=== PATIENT | male | born 1935 | race Caucasian/White ===

== ENCOUNTER 2017-04-08 04:17 | Inpatient (IN) | payer OTHER ==
[2017-04-08] MEDS ORDERED: fentaNYL 100 MCG/2 ML INJ IVP ONE (04:35)
[2017-04-08] MEDS ORDERED: NS 1,000 ML IV ONE ×2 (04:35→08:19)
[2017-04-08] MEDS ORDERED: ONDANSETRON DISINTEGRATING 4 MG TAB PO ONE (04:35)
--- NOTE | 2017-04-08 04:35 | EDPHY ---
H & P Stated Complaint: Abdominal Pain Time Seen by Provider: 04/08/17 04:23 HPI/ROS: CHIEF COMPLAINT: abdominal discomfort HISTORY OF PRESENT ILLNESS: medically stable 81-year-old male who is feeling well until yesterday morning, approximately 20 years ago. Per their beginning woke up he did not feel well. Diffuse abdominal pain essentially periumbilically which is persisted since that time. The symptoms were so bad that he could sleep nice thus he came in. Yesterday morning when he woke up the pain was diffuse and mild to moderate. It was associated with anorexia and no nausea. The anorexia she has now progressed to the point where he has some nausea only after have been examine him. Nonetheless he has not been would be much throughout the day. As best I can relook call there really was not any pain went to bed although he is getting a little mixed up with the day versus night as he has not had any sleep. The patient's of was diffuse periumbilical. Does not localize right or left her upper lower. There has been no associated back pain. He has had no dysuria frequency. He has had no pyuria or hematuria. There has been no diarrhea. Has had no cough shortness of breath difficulty breathing chest pain He has been able to walk correct. There is no pain with walking per se in terms of striking of the feet. He has had no similar pain before. The last bowel movement was a day and half but he has had per poor p.o. intake since then in the 1st place. No one else is ill. No recent travel. No diarrhea. No change of bowel habit. He has not tried anything to try to make the pain go away in terms of pain medications. He describes as a moderate, now progressing to moderately severe, ache. He has had no prior abdominal imaging. REVIEW OF SYSTEMS: Constitutional: No fever, no chills. Eyes: No discharge ENT: No sore throat. Cardiovascular: No chest pain, no palpitations. Respiratory: No cough, shortness of breath, or wheezing. Gastrointestinal: No nausea vomiting or diarrhea. No abdominal pain. Genitourinary: No hematuria or frequency. Musculoskeletal: No back pain. Skin: No rashes. Neurological: No headache. 10 point ROS otherwise negative Source: Patient Exam Limitations: No limitations - Medical/Surgical History Hx Asthma: No Hx Chronic Respiratory Disease: No Hx Diabetes: No Hx Cardiac Disease: No Hx Renal Disease: No Hx Cirrhosis: No Hx Alcoholism: No Hx HIV/AIDS: No Hx Splenectomy or Spleen Trauma: No Other PMH: HTN - Family History Significant Family History: No pertinent family hx - Social History Smoking Status: Never smoked Alcohol Use: None Drug Use: None - Physical Exam Exam: General Appearance: Alert, no distress. Afebrile. Normal phonation. No respiratory distress. Eyes: Pupils equal and round no pallor or injection. No icterus ENT, Mouth: Mucous membranes moist. Pharynx without erythema or exudate. TM Clear. Neck: No adenopathy. Supple. No JVD. Trachea in midline. Respiratory: There are no retractions, lungs are clear to auscultation. Chest wall: Nontender to palpation. No crepitus. Cardiovascular: Regular rate and rhythm, without murmur. Abdomen: Somewhat protuberant, active bowel sounds, tympanitic. Tender, maximally so in the right lower quadrant to direct palpation as well as percussion, but no masses, bowel sounds normal. Femoral pulses equal. No CVA tenderness. Neurological: Ox3. No motor weakness. Sensation intact. Gait nl. Skin: Warm and dry, no rashes. Musculoskeletal: No joint swelling. Extremities: No edema. Homans sign negative. No cords. Psychiatric: Normal affect. Patient is oriented X 3. Constitutional: Initial Vital Signs Temperature (C) 37.4 C 04/08/17 04:31 Heart Rate 61 04/08/17 04:31 Respiratory Rate 18 04/08/17 04:31 Blood Pressure 177/89 H 04/08/17 04:31 O2 Sat (%) 93 04/08/17 04:31 O2 Delivery Mode Nasal Cannula O2 (L/minute) 2 Allergies/Adverse Reactions: No Known Allergies Allergy (Unverified 04/08/17 04:30) Home Medications: Medication Instructions Recorded Amlodipine Besylate 04/08/17 Medical Decision Making - Diagnostics Imaging Results: CT scan of Abdomen & Pelvis. Performed [without] IV contrast. Interpreted by radiologist. Films reviewed by me. Findings as follows: Distended bowel approximately 11 cm with a sigmoid volvulus. Imaging: Discussed imaging studies w/ call box wirer Radiologist ED Course/Re-evaluation: Upon initial evaluation an IV established and given normal saline for volume depletion. We gave him Zofran IV as the exam seem to stimulate him to the point of nausea and he needed to sit up so as not to vomit. Furthermore he opted for some pain relief thus he was given fentanyl 50 mcg IV. His pain improved. With that infusion of the fentanyl he became vagal and hypotensive. She responded quickly to tilting of the stretcher, and his color returned normal with the saline bolus within the next 10 minutes. The white count was normal. With that a CT scan without contrast was initiated. This ultimately as interpreted by the radiologist showed 11 cm: With a sigmoid volvulus. Thereby general surgery was called. Patient requested [address] which had no beds thus [facility] is contacted and I discussed discussed the case with Dr. Anderson. The patient was accepted for transfer from ER to ER. Staff initiated ambulance transfer. ED Doc at [facility] notified by me as well. Differential Diagnosis: Differential diagnosis includes, but is not limited to: Gastroenteritis, dehydration, diverticulitis, hepatitis, pancreatitis, renal colic, kidney stones, ureterolithiasis, cholecystitis, appendicitis, gastritis, mesenteric adenitis, food poisoning, bacterial dysentery. - Data Points Laboratory Results: Laboratory Results 04/08/17 04:55 04/08/17 04:55 04/08/17 04/08/17 04:55 04:55 WBC 6.35 10^3/uL 10^3/uL (3.80-9.50) RBC 5.16 10^6/uL 10^6/uL (4.40-6.38) Hgb 15.6 g/dL g/dL (13.7-17.5) Hct 45.7 % % (40.0-51.0) MCV 88.6 fL fL (81.5-99.8) MCH 30.2 pg pg (27.9-34.1) MCHC 34.1 g/dL g/dL (32.4-36.7) RDW 13.2 % % (11.5-15.2) Plt Count 167 10^3/uL 10^3/uL (150-400) MPV 9.7 fL fL (8.7-11.7) Neut % (Auto) 68.3 % % (39.3-74.2) Lymph % (Auto) 16.1 % % (15.0-45.0) St[place] % (Auto) 11.5 % % (4.5-13.0) Eos % (Auto) 3.5 % % (0.6-7.6) Baso % (Auto) 0.3 % % (0.3-1.7) Nucleat RBC Rel Count 0.0 % % (0.0-0.2) Absolute Neuts (auto) 4.34 10^3/uL 10^3/uL (1.70-6.50) Absolute Lymphs (auto) 1.02 10^3/uL 10^3/uL (1.00-3.00) Absolute Monos (auto) 0.73 10^3/uL 10^3/uL (0.30-0.80) Absolute Eos (auto) 0.22 10^3/uL 10^3/uL (0.03-0.40) Absolute Basos (auto) 0.02 10^3/uL 10^3/uL (0.02-0.10) Absolute Nucleated RBC 0.00 10^3/uL 10^3/uL (0-0.01) Immature Gran % 0.3 % % (0.0-1.1) Immature Gran # 0.02 10^3/uL 10^3/uL (0.00-0.10) Sodium 142 mEq/L mEq/L (134-144) Potassium 3.6 mEq/L mEq/L (3.3-5.0) Chloride 105 mEq/L mEq/L (97-110) Carbon Dioxide 25 mEq/l mEq/l (22-31) Anion Gap 12 mEq/L mEq/L (8-16) BUN 18 mg/dL mg/dL (7-23) Creatinine 0.9 mg/dL mg/dL (0.7-1.3) Estimated GFR > 60 Glucose 131 mg/dL H mg/dL (70-100) Calcium 9.3 mg/dL mg/dL (8.5-10.4) Total Bilirubin 0.8 mg/dL mg/dL (0.1-1.4) Conjugated Bilirubin 0.4 mg/dL mg/dL (0.0-0.5) Unconjugated Bilirubin 0.4 mg/dL mg/dL (0.0-1.1) AST 25 IU/L IU/L (17-59) ALT 37 IU/L IU/L (21-72) Alkaline Phosphatase 92 IU/L IU/L (38-126) Total Protein 7.8 g/dL g/dL (6.3-8.2) Albumin 4.5 g/dL g/dL (3.5-5.0) Lipase 121 IU/L IU/L (23-300) Medications Given: Discontinued Medications Fentanyl (Sublimaze) 50 mcg IVP EDNOW ONE Stop: 04/08/17 04:36 Last Admin: 04/08/17 05:03 Dose: 50 mcg Sodium Chloride (Ns) 1,000 mls @ 0 mls/hr IV EDNOW ONE; Wide Open PRN Reason: Protocol Stop: 04/08/17 04:36 Last Admin: 04/08/17 05:02 Dose: 1,000 mls Morphine Sulfate (Morphine) 2 mg IVP EDNOW ONE Stop: 04/08/17 06:05 Last Admin: 04/08/17 06:13 Dose: 2 mg Morphine Sulfate (Morphine) 2 mg IVP EDNOW ONE Stop: 04/08/17 06:36 Last Admin: 04/08/17 06:38 Dose: 2 mg Ondansetron HCl (Zofran Odt) 4 mg PO EDNOW ONE Stop: 04/08/17 04:36 Last Admin: 04/08/17 05:06 Dose: Not Given Ondansetron HCl (Zofran) 4 mg IVP EDNOW ONE Stop: 04/08/17 05:05 Last Admin: 04/08/17 05:05 Dose: 4 mg Departure - Departure Disposition: [facility] Acute Clinical Impression: Sigmoid volvulus Abdominal pain Qualifiers: Abdominal location: generalized Qualified Code(s): R10.84 - Generalized abdominal pain Condition: Fair Referrals: Patient,NotPresent [Primary Care Provider] - As per Instructions
[2017-04-08] MEDS ORDERED: ONDANSETRON 4 MG/2 ML VIAL ONE ×2 (04:58→11:04)
[2017-04-08 05:01] LABS: % IMMATURE GRANULYOCYTES 0.3 % (0.0-1.1); ABSOLUTE IMMATURE GRANULOCYTES 0.02 10^3/uL (0.00-0.10); ADD DIFF? NO; ADD MORPH? NO; ADD SCAN? NO; ATYPICAL LYMPHOCYTE FLAG 0 (0-99); FRAGMENT RBC FLAG 0 (0-99); HEMATOCRIT 45.7 % (40.0-51.0); HEMOGLOBIN 15.6 g/dL (13.7-17.5); LEFT SHIFT FLG 0 (0-99); LIPEMIA HEMOLYSIS FLAG 90 (0-99); MEAN CELL HEMOGLOBIN 30.2 pg (27.9-34.1); MEAN CELL HEMOGLOBIN CONCENTR. 34.1 g/dL (32.4-36.7); MEAN CELL VOLUME 88.6 fL (81.5-99.8); MEAN PLATELET VOLUME 9.7 fL (8.7-11.7); PLATELET CLUMPS FLAG 0 (0-99); PLATELET COUNT 167 10^3/uL (150-400); RED BLOOD CELL COUNT 5.16 10^6/uL (4.40-6.38); RED CELL DISTRIBUTION WIDTH 13.2 % (11.5-15.2)
[2017-04-08] MEDS ORDERED: ONDANSETRON 4 MG/2 ML VIAL IVP ONE ×2 (05:04→07:28)
[2017-04-08 05:15] LABS: ALANINE AMINOTRANSFERASE 37 IU/L (21-72); ALBUMIN 4.5 g/dL (3.5-5.0); ALKALINE PHOSPHATASE 92 IU/L (38-126); ANION GAP 12 mEq/L (8-16); ASPARTATE AMINOTRANSFERASE 25 IU/L (17-59); BILIRUBIN,TOTAL 0.8 mg/dL (0.1-1.4); BILIRUBIN-CONJUGATED 0.4 mg/dL (0.0-0.5); BILIRUBIN-UNCONJUGATED 0.4 mg/dL (0.0-1.1); CALCIUM 9.3 mg/dL (8.5-10.4); CARBON DIOXIDE 25 mEq/l (22-31); CHLORIDE 105 mEq/L (97-110); CREATININE 0.9 mg/dL (0.7-1.3); GLOMERULAR FILTRATION RATE > 60; GLUCOSE 131 mg/dL (70-100); SODIUM 142 mEq/L (134-144); TOTAL PROTEIN 7.8 g/dL (6.3-8.2)
[2017-04-08 05:17] LABS: POTASSIUM 3.6 mEq/L (3.3-5.0)
--- NOTE | 2017-04-08 07:41 | EDPHY ---
H & P Stated Complaint: Abdominal Pain Time Seen by Provider: 04/08/17 04:23 HPI/ROS: CHIEF COMPLAINT: Referred from [facility] ED for abdominal pain HISTORY OF PRESENT ILLNESS: The patient is referred to the [facility] emergency department from the [facility] ED for abdominal pain with a abnormal CT scan. The patient reportedly developed progressive abdominal pain yesterday. The patient was seen at the emergency department and had evidence of a sigmoid volvulus with upstream obstruction noted on CT scan. The patient was sent here for surgical evaluation. The patient tells me he has no prior history of abdominal surgery. The patient received IV narcotic medications and anti emetics at the other facility. He arrives here complaining of moderate ongoing abdominal pain and nausea with bloating. The patient has a history significant for hypertension. REVIEW OF SYSTEMS: A comprehensive 10 point review of systems is otherwise negative aside from elements mentioned in the history of present illness. Source: Patient Exam Limitations: No limitations - Personal History Current Tetanus Diphtheria and Acellular Pertussis (TDAP): Yes Tetanus Vaccine Date: unsure - Medical/Surgical History Hx Asthma: No Hx Chronic Respiratory Disease: No Hx Diabetes: No Hx Cardiac Disease: No Hx Renal Disease: No Hx Cirrhosis: No Hx Alcoholism: No Hx HIV/AIDS: No Hx Splenectomy or Spleen Trauma: No Other PMH: HTN - Family History Significant Family History: No pertinent family hx - Social History Smoking Status: Never smoked - Physical Exam Exam: General Appearance: Alert, mild discomfort secondary to distention and pain Eyes: Pupils equal and round no pallor or injection ENT, Mouth: Mucous membranes moist Respiratory: There are no retractions, lungs are clear to auscultation Cardiovascular: Regular rate and rhythm Gastrointestinal: Distended, decreased bowel sounds, protuberant, diffuse mild tenderness Neurological: A&O, normal motor function, normal sensory exam, normal cranial nerves Skin: Warm and dry, no rashes Musculoskeletal: Neck is supple nontender Extremities: symmetrical, full range of motion Psychiatric: Patient is oriented X 3, there is no agitation Constitutional: Initial Vital Signs Temperature (C) 37.4 C 04/08/17 04:31 Heart Rate 61 04/08/17 04:31 Respiratory Rate 18 04/08/17 04:31 Blood Pressure 177/89 H 04/08/17 04:31 O2 Sat (%) 93 04/08/17 04:31 O2 Delivery Mode Nasal Cannula O2 (L/minute) 2 Allergies/Adverse Reactions: No Known Allergies Allergy (Unverified 04/08/17 04:30) Home Medications: Medication Instructions Recorded Amlodipine Besylate/Benazepril 1 each PO DAILY 04/08/17 [Amlodipine-Benazepril 5-20 mg] Aspirin [Aspirin 81mg (*)] 81 mg PO DAILY 04/08/17 Calcium Carbonate [Oyster Shell 500 mg PO DAILY 04/08/17 Calcium 500 mg (*)] Cholecalciferol Vit D3 [Vitamin D3 1,000 units PO DAILY 04/08/17 (*)] Medical Decision Making - Diagnostics EKG Interpretation: EKG: Complete interpretation has been separately recorded in the [facility] archive. Summary impression: Sinus rhythm, rate 57 ED Course/Re-evaluation: I reviewed the results of the patient's CT scan, laboratory studies and medications received prior to arrival. I consulted with Dr. Gabe Andrade from General surgery who is evaluating the patient in the emergency department at 7: 45 a.m. in the morning. The patient received an additional 4 mg of morphine. He received an additional 4 mg of IV Zofran. I did review the results of the patient's CT scan with the on-call radiologist Dr. Delaney and reviewed the images personally. The patient was evaluated by Dr. Andrade in the emergency department. He will be taking him to the operating room for surgical treatment of his sigmoid volvulus. The patient received 1 g of IV Invanz. He received additional 1 L of normal saline. Preoperative EKG demonstrates no acute abnormalities. Differential Diagnosis: Differential diagnosis considered includes perforation, obstruction, volvulus, peritonitis, ischemic bowel - Data Points Laboratory Results: Laboratory Results 04/08/17 04:55 04/08/17 04:55 04/08/17 04/08/17 04:55 04:55 WBC 6.35 10^3/uL 10^3/uL (3.80-9.50) RBC 5.16 10^6/uL 10^6/uL (4.40-6.38) Hgb 15.6 g/dL g/dL (13.7-17.5) Hct 45.7 % % (40.0-51.0) MCV 88.6 fL fL (81.5-99.8) MCH 30.2 pg pg (27.9-34.1) MCHC 34.1 g/dL g/dL (32.4-36.7) RDW 13.2 % % (11.5-15.2) Plt Count 167 10^3/uL 10^3/uL (150-400) MPV 9.7 fL fL (8.7-11.7) Neut % (Auto) 68.3 % % (39.3-74.2) Lymph % (Auto) 16.1 % % (15.0-45.0) Terrell % (Auto) 11.5 % % (4.5-13.0) Eos % (Auto) 3.5 % % (0.6-7.6) Baso % (Auto) 0.3 % % (0.3-1.7) Nucleat RBC Rel Count 0.0 % % (0.0-0.2) Absolute Neuts (auto) 4.34 10^3/uL 10^3/uL (1.70-6.50) Absolute Lymphs (auto) 1.02 10^3/uL 10^3/uL (1.00-3.00) Absolute Monos (auto) 0.73 10^3/uL 10^3/uL (0.30-0.80) Absolute Eos (auto) 0.22 10^3/uL 10^3/uL (0.03-0.40) Absolute Basos (auto) 0.02 10^3/uL 10^3/uL (0.02-0.10) Absolute Nucleated RBC 0.00 10^3/uL 10^3/uL (0-0.01) Immature Gran % 0.3 % % (0.0-1.1) Immature Gran # 0.02 10^3/uL 10^3/uL (0.00-0.10) Sodium 142 mEq/L mEq/L (134-144) Potassium 3.6 mEq/L mEq/L (3.3-5.0) Chloride 105 mEq/L mEq/L (97-110) Carbon Dioxide 25 mEq/l mEq/l (22-31) Anion Gap 12 mEq/L mEq/L (8-16) BUN 18 mg/dL mg/dL (7-23) Creatinine 0.9 mg/dL mg/dL (0.7-1.3) Estimated GFR > 60 Glucose 131 mg/dL H mg/dL (70-100) Calcium 9.3 mg/dL mg/dL (8.5-10.4) Total Bilirubin 0.8 mg/dL mg/dL (0.1-1.4) Conjugated Bilirubin 0.4 mg/dL mg/dL (0.0-0.5) Unconjugated Bilirubin 0.4 mg/dL mg/dL (0.0-1.1) AST 25 IU/L IU/L (17-59) ALT 37 IU/L IU/L (21-72) Alkaline Phosphatase 92 IU/L IU/L (38-126) Total Protein 7.8 g/dL g/dL (6.3-8.2) Albumin 4.5 g/dL g/dL (3.5-5.0) Lipase 121 IU/L IU/L (23-300) Medications Given: Discontinued Medications Fentanyl (Sublimaze) 50 mcg IVP EDNOW ONE Stop: 04/08/17 04:36 Last Admin: 04/08/17 05:03 Dose: 50 mcg Sodium Chloride (Ns) 1,000 mls @ 0 mls/hr IV EDNOW ONE; Wide Open PRN Reason: Protocol Stop: 04/08/17 04:36 Last Admin: 04/08/17 05:02 Dose: 1,000 mls Morphine Sulfate (Morphine) 2 mg IVP EDNOW ONE Stop: 04/08/17 06:05 Last Admin: 04/08/17 06:13 Dose: 2 mg Morphine Sulfate (Morphine) 2 mg IVP EDNOW ONE Stop: 04/08/17 06:36 Last Admin: 04/08/17 06:38 Dose: 2 mg Morphine Sulfate (Morphine) 4 mg IVP EDNOW ONE Stop: 04/08/17 07:28 Last Admin: 04/08/17 07:31 Dose: 4 mg Ondansetron HCl (Zofran Odt) 4 mg PO EDNOW ONE Stop: 04/08/17 04:36 Last Admin: 04/08/17 05:06 Dose: Not Given Ondansetron HCl (Zofran) 4 mg IVP EDNOW ONE Stop: 04/08/17 05:05 Last Admin: 04/08/17 05:05 Dose: 4 mg Ondansetron HCl (Zofran) 4 mg IVP EDNOW ONE Stop: 04/08/17 07:29 Last Admin: 04/08/17 07:31 Dose: 4 mg Departure - Departure Disposition: [facility] Inpatient Acute Clinical Impression: Sigmoid volvulus Abdominal pain Qualifiers: Abdominal location: generalized Qualified Code(s): R10.84 - Generalized abdominal pain Condition: Fair
[2017-04-08] MEDS ORDERED: ERTAPENEM 1 GM in NS 100 ML IV ONE (08:20)
--- NOTE | 2017-04-08 08:30 | CPEKG ---
Heart Rate: 57 RR Interval: 1053 P-R Interval: 168 QRSD Interval: 108 QT Interval: 456 QTC Interval: 444 P [place]: 55 QRS [place]: -4 T Wave [place]: 41 EKG Severity - OTHERWISE NORMAL ECG - EKG Impression: LOW VOLTAGE IN FRONTAL LEADS Electronically Signed By: Juan Florentino 08-Apr-2017 08:34:54
--- NOTE | 2017-04-08 09:21 | GHP ---
[f rep st] PREOP HISTORY AND PHYSICAL DATE OF ADMISSION: 04/08/2017 ADMITTING DIAGNOSIS: Sigmoid volvulus with obstruction. HISTORY OF PRESENT ILLNESS: The patient has had constipation issues for some time. He moves his bowels on a 2-3 times per week basis. He does intermittently use MiraLAX. His last bowel movement was last Monday. For the last 3 days, he has not passed any flatus and has developed increasing abdominal girth. He has had no abdominal surgery. He notes that he did not feel hungry and ate minimally on and even less on Monday. He is not hungry at this point. He has not had any vomiting. His pain is periumbilical. He was seen at one of the [facility] and transferred to [facility]. A CT had been performed, which does show a dilated sigmoid to 11 cm. PAST SOCIAL/MEDICAL/SURGICAL/MEDICATION HISTORY: He is a nonsmoker. He does not drink. He has NO KNOWN DRUG ALLERGIES. He has had been hypertensive for 20 years and takes amlodipine 20-5, and an 81 mg aspirin. The only surgery he has had in his life is a right foot surgery (tendon release). There is no history of rheumatic fever, tuberculosis, hepatitis, or transfusions. REVIEW OF SYSTEMS: He has had hypertension for greater than 20 years. He has bilateral cataracts. He has decreased hearing, the left is worse than the right. He does have issues with tinnitus. He has a history of pneumonia in the past, which required admission. He has minimal prostatism, is manifested by terminal dribbling and a slight decrease in his flow. He has no shortness of breath at 1 flight of stairs. He is not currently taking any steroids. PHYSICAL EXAMINATION: GENERAL: He is awake, alert, and pleasant. HEENT: His skull is normocephalic and atraumatic. NECK: I do not detect any carotid bruits. His thyroid is not enlarged. There is no cervical, supraclavicular, axillary or inguinal lymphadenopathy. LUNGS: Clear to auscultation. BACK: A small healed incision on his right back; a benign nevus had been removed at that site. CARDIAC: Shows S1, S2 to be normal. Normal split of S2 without murmurs, rubs, or gallops. ABDOMEN: Quite protuberant and tympanitic. He is not tender with cough. I do not detect any inguinal hernias at this time. LOWER EXTREMITIES: Are unremarkable. CT scan does show a sigmoid volvulus. The sigmoid colon is dilated to 11 cm. I do not see any air in the wall. Additional finding was coronary calcifications, both the right and left cornua. An EKG was performed, which showed a low voltage with normal sinus rhythm. His white count is 6.35, hematocrit is 45, potassium is 3.6, sodium is 142, glucose is 131. Given the time course and the level of distention of the sigmoid colon, I do not feel that decompressive measures are a safe approach at this point. We will plan to explore him de torse the segment and then decide whether a resection and primary anastomosis, resection and end colostomy or pexy will be performed. /[id number]/MODL MTDD
--- NOTE | 2017-04-08 09:44 | PDANEPAE ---
ANE History of Present Illness Sigmoid Volvulus ANE Past Medical History - Cardiovascular History Hx Hypertension: Yes - Pulmonary History Hx COPD: No Hx Asthma/Reactive Airway Disease: No - Endocrine History Hx Diabetes: No ANE Review of Systems Review of Systems: - Exercise capacity METS (RN): 4 METS ANE Patient History - Allergies Allergies/Adverse Reactions: No Known Allergies Allergy (Unverified 04/08/17 04:30) - Home Medications Home medications: home medication list seen and reviewed Home Medications: Amlodipine Besylate/Benazepril [Amlodipine-Benazepril 5-20 mg] 1 each PO DAILY 04/08/17 [Last Taken 04/07/17] Aspirin [Aspirin 81mg (*)] 81 mg PO DAILY 04/08/17 [Last Taken 04/07/17] Calcium Carbonate [Oyster Shell Calcium 500 mg (*)] 500 mg PO DAILY 04/08/17 [ Last Taken Unknown] Cholecalciferol Vit D3 [Vitamin D3 (*)] 1,000 units PO DAILY 04/08/17 [Last Taken Unknown] - NPO status NPO Since - Liquids (Date): 04/07/17 NPO Since - Liquids (Time): 19:00 NPO Since - Solids (Date): 04/07/17 NPO Since - Solids (Time): 19:00 - Anes Hx Anes Hx: no prior problems - Smoking Hx Smoking Status: Never smoked - Alcohol Use Alcohol Use: None ANE Labs/Vital Signs - Labs Result Diagrams: 04/08/17 04:55 04/08/17 04:55 - Vital Signs Blood Pressure: 133/78 Heart Rate: 58 Respiratory Rate: 18 O2 Sat (%): 97 Height: 185.42 cm Weight: 97.522 kg ANE Physical Exam - Airway Neck exam: FROM Mallampati Score: Class 2 Mouth exam: normal dental/mouth exam - Pulmonary Pulmonary: no respiratory distress - Cardiovascular Cardiovascular: regular rate and rhythym - ASA Status ASA Status: II ANE Anesthesia Plan Anesthesia Plan: general endotracheal anesthesia
[2017-04-08] MEDS ORDERED: ROCURONIUM 50 MG/5 ML VIAL ONE (10:01)
[2017-04-08] MEDS ORDERED: GLYCOPYRROLATE 0.2 MG/1 ML VIAL ONE (10:01)
[2017-04-08] MEDS ORDERED: LIDOCAINE 2% 5 ML SDV ONE (10:01)
[2017-04-08] MEDS ORDERED: fentaNYL 100 MCG/2 ML INJ ONE ×3 (10:02→13:29)
[2017-04-08] MEDS ORDERED: PROPOFOL 200 MG/20 ML VIAL ONE (10:03)
[2017-04-08] MEDS ORDERED: LIDOCAINE 2% JELLY 20 ML (UROJECT) ONE (10:12)
[2017-04-08] MEDS ORDERED: DEXAMETHASONE 4 MG/ML VIAL ONE (11:04)
[2017-04-08] MEDS ORDERED: HYDROmorphONE/DILAUDID 1 MG/ML INJ IVP PRN ×2 (11:16→12:39)
[2017-04-08] MEDS ORDERED: ONDANSETRON 4 MG/2 ML VIAL IVP PRN ×2 (11:16→12:31)
[2017-04-08] MEDS ORDERED: NALOXONE HCL 0.4 MG/ML INJ IVP PRN (11:16)
[2017-04-08] MEDS ORDERED: SUGAMMADEX SODIUM 200 MG/2 ML VIAL IVP ONE (12:08)
--- NOTE | 2017-04-08 12:25 | POSTANESTH ---
Post Anesthetic Evaluation Cardiovascular Status: Similar to Pre-Op Cond Respiratory Status: Similar to Pre-op Cond. Level of Consciousness/Mental Status: Alert and Oriented Pain Control: Adequate, Prn Tx Ordered Nausea/Vomiting Control: Adequate, Prn Tx Ordered Complications Possibly Related to Anesthesia: None Noted
--- NOTE | 2017-04-08 12:43 | POSTOPPROG ---
Post Op Note Date of Operation: 04/08/17 Surgeon: Eric Andrade Anesthesia: GET(General Endotracheal) Pre-op Diagnosis: Sigmoid volvulus Post-op Diagnosis: Sigmoid volvulus Indication: Sigmoid volvulus Findings: Sigmoid volvulus Inf/Abcess present in the surg proc area at time of surgery?: No Total fluids administered: 1600 OR ( 1000 in ER) Complications: None Drains: Jong Lovelace (In pelvis)
--- NOTE | 2017-04-08 13:17 | GOP ---
[f rep st] OPERATIVE REPORT DATE OF OPERATION: 04/08/2017 SURGEON: Eric Andrade MD SYSTEM CONFIGURATION SPECIALIST: Etelvina Perry M.D., [facility]. PREOPERATIVE DIAGNOSIS: Sigmoid volvulus. POSTOPERATIVE DIAGNOSIS: Sigmoid volvulus. PROCEDURE PERFORMED: Sigmoid resection with primary hand-sewn anastomosis. FINDINGS: Sigmoid volvulus. DESCRIPTION OF PROCEDURE: The patient was placed on the operating table in supine position. He was placed under general endotracheal anesthesia. A surgical time-out was carried out at this time. A King catheter was passed as was a rectal tube. The abdomen was clipped, prepped, and draped. A vertical midline hypogastric incision was made. The skin was incised sharply and dissection continued with Bovie electrocautery down to and through the anterior rectus sheath. The peritoneum was carefully elevated between hemostats and sharply entered. A large redundant sigmoid and descending colon was identified. It was carefully brought out through the incision and untwisted. A distal point of resection was identified. The bowel was cleared on its mesenteric side and a linear 75mm stapler was placed. A Rafael had been placed proximally. The stapler was fired. A proximal point of resection was chosen. The bowel again was cleared circumferentially and another 75 mm linear stapler was fired across it. Some leakage was noted at the distal site. A stapler was refired across the mesenteric aspect of the distal segment to complete closure. The mesentery was divided with the Harmonic Scalpel. One large vessel had to be ligated. The specimen was removed from the field. A Bookwalter was brought to the field. The small bowel and cecum were packed in a cephalad direction. The Bookwalter was placed and good visualization was carried out. The left lateral (posterior) wall was closed 1st. Initially, 2 stay sutures were placed to help control the bowel and take tension off the anastomosis. This resulted in the posterior wall being exposed, which was now closed with intermittent Lembert sutures of #3-0 GI silk. Once this was completed, the bowel was open proximally and distally with the Bovie. The 1st layer closure was carried out. 4-0 Vicryl was used, starting at the midline posteriorly. The suture was tied in a running locking manner to the inferior "corner." The 2nd one was started in the midline. The tails were tied. The suture was also a running locking technique to the "corner." A Millie stitch was used to approach the anterior edge of the closure. Once that anastomosis was complete, the anterior wall was approximated with interrupted Lembert sutures of #3-0 GI silk. This resulted in excellent closure. All tapes and retractors were removed. Irrigation was carried out. A 10 flat MIAN drain was placed in the pelvis and led out through the left lower quadrant. Gowns and gloves were changed. A field was redeveloped. The fascia was closed with a running suture of #0 PDS starting at the apex and running to the distal 1/3rd. A 2nd suture started inferiorly and run up to meet the 1st. Both sutures were tied. The subcutaneous tissue was well irrigated. The skin was closed with rubens. Note is made the MIAN drain had been sutured with 3-0 silk suture. Sterile dressings applied. The patient was taken to recovery after the rectal tube was removed. His orogastric tube had also been removed. /[id number]/MODL MTDD
[2017-04-08] MEDS: fentaNYL 100 MCG/2 ML INJ IVP PRN ×2 (13:31→14:29)
[2017-04-08] MEDS ORDERED: HYDROmorphONE/DILAUDID 1 MG/ML INJ ONE (13:33)
[2017-04-08] MEDS: ACETAMINOPHEN 500 MG TAB PO SCH ×2 (16:00→23:02)
[2017-04-08] MEDS: KETOROLAC 15 MG/1 ML SDV IVP SCH ×2 (18:45→23:59)
[2017-04-08] MEDS ORDERED: METOCLOPRAMIDE 10 MG/2 ML VIAL ONE (19:44)
[2017-04-08 19:53] LABS: MAGNESIUM 1.7 mg/dL (1.6-2.3); POTASSIUM 3.9 mEq/L (3.5-5.2)
[2017-04-08] MEDS: ENOXAPARIN 30 MG/0.3 ML SYR SC SCH (21:35)
[2017-04-09] MEDS: NS 1,000 ML IV SCH ×2 (02:00→16:32)
[2017-04-09] MEDS: ACETAMINOPHEN 500 MG TAB PO SCH ×3 (05:10→20:24)
[2017-04-09] MEDS: KETOROLAC 15 MG/1 ML SDV IVP SCH ×4 (05:10→23:35)
[2017-04-09 05:19] LABS: HEMOGLOBIN 12.2 g/dL (13.7-17.5)
[2017-04-09 06:25] LABS: ANION GAP 9 mEq/L (8-16); CALCIUM 7.6 mg/dL (8.5-10.4); CARBON DIOXIDE 23 mEq/l (22-31); CHLORIDE 109 mEq/L (97-110); CREATININE 0.9 mg/dL (0.7-1.3); GLOMERULAR FILTRATION RATE > 60; GLUCOSE 123 mg/dL (70-100); MAGNESIUM 1.8 mg/dL (1.6-2.3); SODIUM 141 mEq/L (134-144)
[2017-04-09] MEDS: ERTAPENEM 1 GM in NS 100 ML IV SCH (08:36)
[2017-04-09] MEDS: ENOXAPARIN 30 MG/0.3 ML SYR SC SCH ×2 (08:36→20:23)
--- NOTE | 2017-04-09 09:51 | SOAPPROG ---
SOAP Progress Note Assessment/Plan: POD#! 04/09/17 09:48 Assessment: Doing well POD#1 from sigmoid resection with primary anastomosis. Awake alert, Passing some gas, I&O adequate but BUN up. pain controlled. minimal MIAN output Plan: Transfer to med/surg floor. Will not feed yet. Subjective: Feeling better than I thought I would. Objective: Vital Signs Temp Pulse Resp BP Pulse Ox 36.7 C 58 L 14 122/59 H 99 04/09/17 08:00 04/09/17 08:00 04/09/17 08:00 04/09/17 08:00 04/09/17 08:00 Laboratory Results 04/09/17 05:05 04/09/17 05:05 04/08/17 04/09/17 04/10/17 05:59 05:59 05:59 Intake Total 4240 Output Total 1325 Balance 2915 - Time Spent With Patient Time Spent With Patient: 25 - Pending Discharge Pending Discharge Within 24 Hours: No Pending Discharge Within 48 Hours: No Physical Exam - Physical Exam General Appearance: WD/WN, alert, no apparent distress Neck: non-tender, full range of motion, supple Respiratory: chest non-tender, lungs clear, normal breath sounds, other (IS to 2000 -3000) Cardiac/Chest: regular rate, rhythm Abdomen: non-tender, soft Male Genitalia: deferred, other (Bowel sounds distant and slightly high pitched) Rectal: deferred Back: Normal inspection Skin: normal color, warm/dry Extremities: normal range of motion, non-tender, normal inspection Neuro/Psych: no motor/sensory deficits, alert, normal mood/affect, oriented x 3 ICD10 Worksheet Patient Problems: Problems Problem Status Onset Abdominal pain Acute Sigmoid volvulus Acute
[2017-04-09] MEDS ORDERED: NS 500 ML IV ONE (15:30)
[2017-04-09] MEDS: TAMSULOSIN HCL 0.4 MG CAP PO SCH ×2 (15:49→20:24)
--- NOTE | 2017-04-09 17:49 | ASMTCMCOM ---
CM Note CM Note Notes: 81 year old male admitted for Sigmoid volvulus w/obs. Patient has a hx of R foot surgery, HTN. This is POD #1 of a sigmoid resection. Therapies to eval patient. CM to follow for discharge needs. Date Signed: 04/09/2017 05:48 PM Electronically Signed By:Cassie Granados LCSW
[2017-04-10] MEDS: NS 1,000 ML IV SCH (02:22)
[2017-04-10 04:43] LABS: HEMATOCRIT 35.2 % (40.0-51.0); HEMOGLOBIN 12.1 g/dL (13.7-17.5); MEAN CELL HEMOGLOBIN 30.9 pg (27.9-34.1); MEAN CELL HEMOGLOBIN CONCENTR. 34.4 g/dL (32.4-36.7); MEAN CELL VOLUME 89.8 fL (81.5-99.8); RED BLOOD CELL COUNT 3.92 10^6/uL (4.40-6.38); RED CELL DISTRIBUTION WIDTH 13.1 % (11.5-15.2)
[2017-04-10 04:58] LABS: ANION GAP 6 mEq/L (8-16); CALCIUM 7.8 mg/dL (8.5-10.4); CARBON DIOXIDE 27 mEq/l (22-31); CHLORIDE 109 mEq/L (97-110); CREATININE 0.8 mg/dL (0.7-1.3); GLOMERULAR FILTRATION RATE > 60; GLUCOSE 90 mg/dL (70-100); POTASSIUM 3.8 mEq/L (3.5-5.2); SODIUM 142 mEq/L (134-144)
[2017-04-10] MEDS: ACETAMINOPHEN 500 MG TAB PO SCH ×3 (04:58→21:09)
[2017-04-10] MEDS: KETOROLAC 15 MG/1 ML SDV IVP SCH ×4 (04:58→23:14)
[2017-04-10] MEDS: ERTAPENEM 1 GM in NS 100 ML IV SCH (08:45)
[2017-04-10] MEDS: ENOXAPARIN 30 MG/0.3 ML SYR SC SCH ×2 (08:46→21:08)
--- NOTE | 2017-04-10 09:09 | SOAPPROG ---
SOAP Progress Note Assessment/Plan: POD#1 04/09/17 09:48 Assessment: Doing well POD#1 from sigmoid resection with primary anastomosis. Awake alert, Passing some gas, I&O adequate but BUN up. pain controlled. minimal MIAN output Plan: Transfer to med/surg floor. Will not feed yet. POD#2 04/10/17 09:06 Assessment: Doing quite well. Hungry, passing flatus BUN still 25 but urine output increased. Flomax started last PM. Voiding has improved Minimal MIAN output - removed Hct stable Plan: Will try clear liquids and advance as tolerated. Subjective: I feel great! Objective: Vital Signs Temp Pulse Resp BP Pulse Ox 37.2 C 65 18 136/72 H 92 04/10/17 08:00 04/10/17 08:00 04/10/17 08:00 04/10/17 08:00 04/10/17 08:00 Laboratory Results 04/10/17 04:22 04/10/17 04:22 04/09/17 04/10/17 04/11/17 05:59 05:59 05:59 Intake Total 4240 2004 Output Total 1325 955 Balance 2915 1049 - Time Spent With Patient Time Spent With Patient: 25 Physical Exam - Physical Exam General Appearance: WD/WN, alert, no apparent distress Neck: non-tender, full range of motion, supple Respiratory: chest non-tender, lungs clear, normal breath sounds, other (IS to > 2500cc) Cardiac/Chest: regular rate, rhythm Abdomen: normal bowel sounds, non-tender, soft, other (Incision clean and dry) Male Genitalia: deferred Rectal: deferred Back: Normal inspection Skin: normal color, warm/dry Extremities: normal range of motion, non-tender, normal inspection Neuro/Psych: no motor/sensory deficits, alert, normal mood/affect, oriented x 3 ICD10 Worksheet Patient Problems: Problems Problem Status Onset Abdominal pain Acute Sigmoid volvulus Acute
[2017-04-10] MEDS: TAMSULOSIN HCL 0.4 MG CAP PO SCH (21:08)
[2017-04-11] MEDS: ACETAMINOPHEN 500 MG TAB PO SCH ×2 (05:13→13:51)
[2017-04-11] MEDS: KETOROLAC 15 MG/1 ML SDV IVP SCH ×2 (05:14→13:51)
[2017-04-11 07:40] VITALS: RESP 18
--- NOTE | 2017-04-11 08:49 | SOAPPROG ---
SOAP Progress Note Assessment/Plan: Assessment: POD#3 s/p sigmoid colectomy for sigmoid volvulus Return of bowel function Regular diet Plan home tomorrow S: feeling well. uses oxygen at night at home. lives with and 2 grandchildren. wants to go home. O: laying in bed, comfortable, NAD No increased WOB Abd soft, NT, nd, + BS. Incision CDI Objective: Vital Signs Temp Pulse Resp BP Pulse Ox 36.6 C 66 18 152/84 H 94 04/11/17 07:37 04/11/17 07:37 04/11/17 07:37 04/11/17 07:37 04/11/17 07:37 Laboratory Results 04/10/17 04:22 04/10/17 04:22 04/10/17 04/11/17 04/12/17 05:59 05:59 05:59 Intake Total 2003 800 Output Total 934 1210 Balance 1049 -410 ICD10 Worksheet Patient Problems: Problems Problem Status Onset Abdominal pain Acute Sigmoid volvulus Acute
[2017-04-11] MEDS: ENOXAPARIN 30 MG/0.3 ML SYR SC SCH (10:20)
[2017-04-11 16:21] VITALS: BP 136/72; PULSE 75; TEMP 97.8; O2SAT 91
== END 2017-04-11 17:05 | disposition home or self-care (01) | DRG 331 ==
LOC: CED 04:17 → F2N 14:53 → F3E 04-09 12:01
PROVIDERS: ADMIT Surgery; ATTEND Surgery
PROC: 0DTN0ZZ Resection of Sigmoid Colon, Open Approach (ICD-10-PCS; principal; 2017-04-08 10:00)
DX: K56.2 Volvulus (principal); I10 Essential (primary) hypertension; H26.9 Unspecified cataract; H93.19 Tinnitus, unspecified ear
CPT/HCPCS: 74176-PO; 80048-PO; 80076-PO; 83690-PO; 85025-PO; 96374; J1100; J1170; J1335; J1650; J1885; J2405; J2704; J2765; J3010